=== PATIENT | female | born 1975 | race Caucasian/White ===

== ENCOUNTER → 2018-08-31 17:50 | Outpatient (CLI) | payer BC, SELFPAY ==
[2018-08-31 19:03] LABS: Alanine Aminotransferase 53 U/L (12-78); Albumin Level 4.3 gm/dL (3.4-5.0); Albumin/Globulin Ratio 1.1 (1.1-1.8); Alkaline Phosphatase 60 U/L (46-116); Anion Gap 17.9 mEq/L (5-15); Aspartate Amino Transferase 22 U/L (15-37); Bilirubin,Total 0.4 mg/dL (0.2-1.0); Blood Urea Nitrogen 11 mg/dL (7-18); Calcium 9.1 mg/dL (8.5-10.1); Carbon Dioxide 24 mmol/L (21.0-32.0); Chloride 101 mmol/L (98-107); Chol/HDL Ratio 4.7 (1-3.5); Cholesterol 169 mg/dL (140-200); Creatinine,Serum 0.68 mg/dL (0.55-1.02); Estimated Glomerular Filt Rate 95 ml/min (>60); GFR (African American) 115 ML/MIN (>60); Globulin 3.8 gm/dl (1.3-3.2); Glucose 128 mg/dL (74-106); HDL Cholesterol 36 mg/dL (29-89); LDL Cholesterol 60 mg/dL (0-130); Potassium 3.9 mmoL/L (3.5-5.1); Sodium 139 mmol/L (136-145); T4 (Thyroxine) 7.9 ug/dl (4.7-13.3); Thyroid Stimulating Hormone 1.46 uIU/ml (0.358-3.740); Total Protein,Serum 8.1 gm/dL (6.4-8.2); Triglycerides 363 mg/dL (30-200); VLDL Cholesterol 73 mg/dL (0-40)
[2018-08-31 19:12] LABS: Basophils % 0.5 % (0.1-2.0); Eosinophils # 0.2 K/mm3 (0.0-0.4); Eosinophils % 2.7 % (0.1-12.0); Hematocrit 40.4 % (37.0-47.0); Hemoglobin 14.2 g/dL (12.2-16.2); Lymphocytes # 1.8 K/mm3 (0.7-4.5); Lymphocytes % 23.2 % (10-50); Mean Corpuscular Hemoglobin 29.3 pg (27.0-31.2); Mean Corpuscular Volume 83.7 fl (81-99); Mean Platelet Volume 8.9 fl (7.4-10.4); Monocytes # 0.3 K/mm3 (0.1-1.0); Monocytes % 4.4 % (1.7-9.3); Neutrophils # 5.4 K/mm3 (1.8-7.8); Neutrophils % 69.1 % (37.0-80.0); Platelet Count 288 K/mm3 (142-424); Red Blood Count 4.83 M/mm3 (4.20-5.40); Red Cell Distribution Width 14.7 % (11.5-17.5); White Blood Count 7.8 K/mm3 (4.8-10.8)
[2018-08-31 20:00] LABS: Hemoglobin A1C 5.4 % (0.0-7.0)
[2018-09-02 18:09] LABS: Vitamin D 25 Hydroxy 20.1 ng/mL (30.0-100.0)
== END ==
PROVIDERS: Visit Provider Physician Assistant
DX: I10 Essential (primary) hypertension (principal); R73.9 Hyperglycemia, unspecified
CPT/HCPCS: 80053; 80061; 82652; 83036; 84436; 84443; 85025

== ENCOUNTER → 2018-10-18 16:28 | Outpatient (CLI) | payer BC, SELFPAY ==
--- NOTE | 2018-10-18 16:33 | MM_ITS ---
MM Dig screening mamm BI w/CAD CAD Screening COMPARISON: Outside Digital mammograms with CAD 11/18/2016 INDICATION: There is a history of breast cancer patient maternal aunt. TECHNIQUE: Standard CC and MLO images were obtained. R2 CAD reviewed. FINDINGS: Moderate diffuse fibroglandular densities are seen throughout both breasts. The findings are bilateral and symmetrical. There is no suspicious lesion and there are no suspicious microcalcifications. IMPRESSION: Moderate breast density with no suspicious lesion seen BI-RADS Category: 1 Negative RECOMMENDED FOLLOW-UP: 1YR - 1 YEAR FOLLOW-UP (A letter has been sent to the patient regarding results of the study.)
== END ==
PROVIDERS: PCP Physician Assistant; Visit Provider Physician Assistant
DX: Z12.31 Encounter for screening mammogram for malignant neoplasm of breast (principal)
CPT/HCPCS: 77067

== ENCOUNTER → 2019-11-19 17:20 | Outpatient (CLI) | payer BC, SELFPAY ==
[2019-11-19 17:39] LABS: Chloride 100 mmol/L (98-107); Potassium 4.2 mmoL/L (3.5-5.1); Sodium 140 mmol/L (136-145)
[2019-11-19 17:40] LABS: Basophils # 0.1 K/mm3 (0-0.2); Basophils % 0.7 % (0.1-2.0); Eosinophils # 0.2 K/mm3 (0.0-0.4); Eosinophils % 2.7 % (0.1-12.0); Hematocrit 42.6 % (37.0-47.0); Hemoglobin 14.3 g/dL (12.2-16.2); Lymphocytes # 2.1 K/mm3 (0.7-4.5); Lymphocytes % 27.6 % (10-50); Mean Corpuscular HGB Conc 33.7 g/dL (31.8-35.4); Mean Corpuscular Hemoglobin 29.1 pg (27.0-31.2); Mean Corpuscular Volume 86.4 fl (81-99); Monocytes # 0.3 K/mm3 (0.1-1.0); Monocytes % 4.1 % (1.7-9.3); Neutrophils % 64.9 % (37.0-80.0); Platelet Count 292 K/mm3 (142-424); Red Blood Count 4.92 M/mm3 (4.20-5.40); Red Cell Distribution Width 14.4 % (11.5-17.5); White Blood Count 7.6 K/mm3 (4.8-10.8)
[2019-11-19 17:41] LABS: Alanine Aminotransferase 52 U/L (12-78); Aspartate Amino Transferase 49 U/L (14-36); Blood Urea Nitrogen 16 mg/dl (7-17); Estimated Glomerular Filt Rate 110 ml/min (>60); GFR (African American) 133 ML/MIN (>60)
[2019-11-19 17:42] LABS: Albumin Level 4.7 g/dl (3.5-5.0); Albumin/Globulin Ratio 1.6 (1.1-1.8); Alkaline Phosphatase 54 U/L (38-126); Anion Gap 19.2 mEq/L (5-15); Bilirubin,Total 0.6 mg/dl (0.2-1.3); Calcium 9.9 mg/dl (8.4-10.2); Carbon Dioxide 25 mmol/L (22.0-30.0); Chol/HDL Ratio 4.6 (1-3.5); Cholesterol 199 mg/dl (140-200); Glucose 110 mg/dl (74-100); HDL Cholesterol 43 mg/dl (40-60); Total Protein,Serum 7.7 g/dl (6.3-8.2); Triglycerides 369 mg/dl (30-150); VLDL Cholesterol 74 mg/dL (0-40)
[2019-11-19 17:53] LABS: Direct LDL Cholesterol 113.16 mg/dL (100-129)
[2019-11-19 17:58] LABS: T4 (Thyroxine) 9.8 ug/dl (5.53-11.0)
[2019-11-19 18:11] LABS: Thyroid Stimulating Hormone 1.49 uIU/mL (0.465-4.68)
[2019-11-22 08:56] LABS: FSH 5.9 mIU/mL (.); LH 3.8 mIU/mL (.)
[2019-11-26 01:46] LABS: Estrogen 62 pg/mL (.)
== END ==
PROVIDERS: Visit Provider Physician Assistant
DX: I10 Essential (primary) hypertension (principal); R45.86 Emotional lability; L74.510 Primary focal hyperhidrosis, axilla
CPT/HCPCS: 80053; 80061; 82306; 82672; 83001; 83002; 84436; 84443; 85025

== ENCOUNTER → 2020-08-14 16:48 | Outpatient (CLI) | payer BC, SELFPAY ==
--- NOTE | 2020-08-14 16:50 | MM_ITS ---
PROCEDURE INFORMATION: Exam: Screening 3D Mammography Exam date and time: 08/14/2020 4:50 PM Age: 45 years old Clinical indication: Encounter for screening mammogram for malignant neoplasm of breast . Family history of breast carcinoma. Patient had 2nd dose of current COVID-19 vaccine on 05/08/2020 in the left arm. TECHNIQUE: Imaging protocol: Screening tomosynthesis and 2D mammography including computer-aided detection (CAD) when performed. COMPARISON: DIG MAMM-SCREEN AVILA 10/18/2018 4:52 PM FINDINGS: MAMMOGRAPHY: Breast composition: The breasts are heterogeneously dense, which may obscure small masses. Mass: No new suspicious masses. Architectural distortion: No suspicious distortion. Calcifications: No suspicious calcifications. Asymmetric density: None. Skin thickening: None. Axillary adenopathy: New 1 cm probable right axillary lymph node best seen on MLO frame 21 and full field exaggerated CC lateral view. Two smaller subcentimeter benign-appearing lymph nodes are also noted in the right axilla. No abnormal left axillary lymph nodes. IMPRESSION: Recommend targeted ultrasound of the right axilla for further evaluation of a new 1 cm probable right axillary lymph node. No definite mammographic evidence of malignancy in the left breast. ASSESSMENT: BI-RADS Category 0: Incomplete- Need Additional Imaging Evaluation and/or Prior Mammograms for Comparison
== END ==
PROVIDERS: PCP Nurse Practitioner Family; Visit Provider Nurse Practitioner Family
DX: Z12.31 Encounter for screening mammogram for malignant neoplasm of breast (principal)
CPT/HCPCS: 77063; 77067

== ENCOUNTER → 2020-09-05 15:09 | Outpatient (CLI) | payer BC, SELFPAY ==
--- NOTE | 2020-09-05 15:12 | US_ITS ---
PROCEDURE INFORMATION: Exam: US Right Breast, Complete Exam date and time: 09/05/2020 3:12 PM Age: 45 years old Clinical indication: Right axilla ultrasound was recommended to evaluate a new 1 cm probable right axillary lymph node TECHNIQUE: Imaging protocol: Complete ultrasound of all four quadrants of the Right breast and the retroareolar regions, including ultrasound of the axillae when performed. COMPARISON: MG MM DIG SCREENING MAMM BI W/CAD 08/14/2020 4:48 PM FINDINGS: Breast: In the right axilla region of mammographic interest only morphologically normal lymph nodes were identified. In the 12 o'clock periareolar right breast there is a hypoechoic horizontally oriented circumscribed solid 6 by 4 x 3 mm mass. No associated architectural distortion or shadowing. No suspicious solid or cystic mass is present IMPRESSION: Six-month follow-up right diagnostic mammogram to assess stability of a suspected sonographically occult right axillary 1 cm lymph node is recommended Six-month follow-up 12 o'clock periareolar right breast ultrasound is recommended to assess stability of a mammographically occult 6 mm probably benign mass ASSESSMENT: BI-RADS category 3: Probably benign
== END ==
PROVIDERS: PCP Nurse Practitioner Family; Visit Provider Nurse Practitioner Family
DX: R92.2 Inconclusive mammogram (principal)
CPT/HCPCS: 76641

== ENCOUNTER → 2022-02-05 16:38 | Outpatient (CLI) | payer BC, SELFPAY ==
--- NOTE | 2022-02-05 16:42 | MM_ITS ---
PROCEDURE INFORMATION: Exam: MG Bilateral Screening 3D Mammography Exam date and time: 02/05/2022 4:38 PM Age: 46 years old Clinical indication: Screening - and recommended for six-month follow-up of the right axillary lymph node and sonographic nodule on the right at 12 o'clock from 09/05/2020. No family history of breast cancer. TECHNIQUE: Imaging protocol: Bilateral Screening tomosynthesis and 2D mammography including computer-aided detection (CAD) when performed. COMPARISON: 1. MG MM DIG SCREENING MAMM BI W/CAD 08/14/2020 4:48 PM 2. MG DIG MAMM-SCREEN AVILA 10/18/2018 4:52 PM 3. US BREAST RT COMPLETE 09/05/2020 3:50 PM FINDINGS: MAMMOGRAPHY: Breast composition: The breasts are heterogeneously dense, which may obscure small masses. Mass: Stable 1.0 cm right axillary lymph node since 08/14/2020 (unremarkable at ultrasound 09/05/2020) Architectural distortion: None. Calcifications: No suspicious calcifications. Asymmetric density: None. Skin thickening: None. Axillary adenopathy: None. IMPRESSION: Patient to be recalled for targeted right sonography at 12 o'clock (unless has been performed in the interval) as recommended for six-month follow-up for probably benign mass from 09/05/2020. Stable right axillary mammographic lymph node since 08/14/2020. No mammographic evidence of malignancy. ASSESSMENT: BI-RADS Category 0: Incomplete- Need Additional Imaging Evaluation and/or Prior Mammograms for Comparison
== END ==
PROVIDERS: PCP Nurse Practitioner Family; Visit Provider Nurse Practitioner Family
DX: Z12.31 Encounter for screening mammogram for malignant neoplasm of breast (principal)
CPT/HCPCS: 77063; 77067

== ENCOUNTER → 2022-03-16 14:55 | Outpatient (CLI) | payer BC, SELFPAY ==
--- NOTE | 2022-03-16 14:59 | US_ITS ---
PROCEDURE INFORMATION: Exam: US Right Breast, Complete Exam date and time: 03/16/2022 3:04 PM Age: 46 years old Clinical indication: Breast pain; Right; short-term radiographic follow-up for a right breast mass TECHNIQUE: Imaging protocol: Complete ultrasound of all four quadrants of the Right breast and the retroareolar regions, including ultrasound of the axilla when performed. COMPARISON: US BREAST RT COMPLETE 09/05/2020 3:50 PM FINDINGS: Breast: Sonographic images of the right breast including the retroareolar region, all 4 quadrants and the axilla demonstrates a stable ovoid hypoechoic solid mass in the 12 o'clock periareolar region measuring 0.7 x 0.5 x 3 cm. 1.0 cm partially cutaneous mass in the right axilla is most consistent with a sebaceous or follicular cyst. No architectural distortion or acoustical shadowing. No skin thickening or axillary adenopathy. IMPRESSION: Stable right supra-areolar solid mass compared to prior ultrasound dated 09/05/2020. A six-month follow-up targeted right breast ultrasound is recommended to ensure long-term stability ASSESSMENT: BI-RADS Category 3: Probably benign
== END ==
PROVIDERS: PCP Nurse Practitioner Family; Visit Provider Nurse Practitioner Family
DX: R92.2 Inconclusive mammogram (principal)
CPT/HCPCS: 76641